=== PATIENT | male | born 1965 | race Caucasian/White ===

== ENCOUNTER 2019-03-01 12:28 | Emergency (ER) | payer BC ==
[~2019-03-01] VITALS: Ht 188 cm; Wt 79.4 kg
[2019-03-01] MEDS ORDERED: CLINDAMYCIN PHOS 600 MG/ 4 ML VIAL IM ONE (13:15)
[2019-03-01 14:50] VITALS: BP 160/90
== END 2019-03-01 14:51 | disposition home or self-care (01) ==
LOC: ER 12:28
DX: K08.89 Other specified disorders of teeth and supporting structures (principal); K02.9 Dental caries, unspecified; K04.7 Periapical abscess without sinus; E11.40 Type 2 diabetes mellitus with diabetic neuropathy, unspecified
CPT/HCPCS: 99282

== ENCOUNTER → 2023-02-28 | Day surgery (SDC) | payer BC ==
[~2023-02-28] MED LIST: EPINEPHRINE HCL 1:1000 1ML 1 MG/ML AMP ONE; GLYCOPYRROLATE INJ 0.2 MG/ML VIAL ONE; HUMALOG100 UNIT/1; LACTATED RINGER'S 1,000 ML ONE; LANTUS 3ML100 UNITS/; LIDOCAINE HCL 2% LOCAL INJ 5 ML SDV VIAL INJ ONE; LOSARTAN POTASS25 MG PO; MIDAZOLAM HCL 2 MG/2 ML VIAL ONE; MULTI-VITAMIN1 EACH PO; POVIDONE IODINE 0.05% 0.05 % ML PO ONE; PROPOFOL IV EMULSION 10 MG/ML 20 ML VIAL ONE
[2023-02-28 16:58] VITALS: TEMP 97.6
[2023-02-28 17:30] VITALS: BP 122/71; PULSE 85; RESP 16; O2SAT 98
== END | disposition home or self-care (01) ==
LOC: OR 11:52
PROVIDERS: ATTEND Internal Medicine Gastroenterology
DX: Z12.11 Encounter for screening for malignant neoplasm of colon (principal); D12.0 Benign neoplasm of cecum; D12.3 Benign neoplasm of transverse colon; D12.4 Benign neoplasm of descending colon; K62.89 Other specified diseases of anus and rectum; K57.30 Diverticulosis of large intestine without perforation or abscess without bleeding; K64.8 Other hemorrhoids; E11.9 Type 2 diabetes mellitus without complications; Z01.810 Encounter for preprocedural cardiovascular examination; Z79.4 Long term (current) use of insulin; Z79.899 Other long term (current) drug therapy; Z80.0 Family history of malignant neoplasm of digestive organs
CPT/HCPCS: 36415; 45380; 45381; 45384; 45385; 82948; 93005; J0171; J2001; J2250; J2704; J7121; 45378